=== PATIENT | female | born 1965 | race Caucasian/White ===

== ENCOUNTER → 2016-12-27 | Day surgery (SDC) | payer OTHER ==
[~2016-12-27] VITALS: Ht 170.2 cm; Wt 56.8 kg
[~2016-12-27] MED LIST: BUPIVACAINE HCL PF 0.5% 30 ML VIAL ONE; CEPH-460 PO; FAMOTIDINE 20 MG/2 ML VIAL ONE; IBUP-232 PO; LACTATED RINGER'S 1000 ML INJ 1,000 ML ONE; MIDAZOLAM HCL 2 MG/2 ML VIAL ONE; NEOMYCIN/POLYMYXIN 1 ML G.U. IRRIGANT TOPICAL ONE; NORC5TAB PO; POTA2TAB PO; PROPOFOL 200 MG/20 ML AMP IV ONE; TRIAMCINOLONE ACETONIDE 40 MG/ML VIAL ONE; VITA10002 PO; VITA400C2 PO; WOMECAP2 PO; ceFAZolin INJ 1,000 MG VIAL ONE
[2016-12-27 07:53] VITALS: BP 111/68; PULSE 62; RESP 20; TEMP 98; O2SAT 97
[2016-12-27 07:57] LABS: HEMATOCRIT 32.8 % (35.0-46.0); MEAN CORPUSCULAR HEMOGLOBIN 33.2 PG (27.0-34.0); MEAN CORPUSCULAR HGB CONC 34.2 % (32.0-36.0); PLATELET COUNT 270 TH/MM3 (150-450); RED BLOOD COUNT 3.38 MIL/MM3 (4.00-5.30); REVIEW FLAG FINAL; WHITE BLOOD COUNT 7.9 TH/MM3 (4.0-11.0)
--- NOTE | 2016-12-27 08:36 | RADHPO ---
EXAM DATE/TIME: 12/27/2016 07:51 [facility] COMPARISON: No previous studies available for comparison. INDICATIONS : Evaluate for pneumothorax,pneumonia, or communicable diseases. Pre op hand surgery MEDICAL HISTORY : None. SURGICAL HISTORY : None. ENCOUNTER: Initial ACUITY: 1 day PAIN SCORE: 0/10 LOCATION: Bilateral chest FINDINGS: A single view of the chest demonstrates the lungs to be symmetrically aerated without evidence of mas s, infiltrate or effusion. The cardiomediastinal contours are unremarkable. Osseous structures are intact. CONCLUSION: No acute disease. Fred Saldana MD on December 27, 2016 at 8:34 Board Certified Radiologist. This report was verified electronically.
[2016-12-27] MEDS: LIDOCAINE HCL 2% 50 ML VIAL ONE ×2 (09:58→10:05)
[2016-12-27 10:20] VITALS: TEMP 97.9
[2016-12-27 11:15] VITALS: BP 113/63; PULSE 64; RESP 14; O2SAT 97
--- NOTE | 2016-12-27 11:15 | MP ---
cc: RIGOBERTO CARPENTER III, M.D. DATE OF SURGERY: 12/27/2016 PREOPERATIVE DIAGNOSIS Right carpal tunnel syndrome. POSTOPERATIVE DIAGNOSIS Right carpal tunnel syndrome. PROCEDURE 1. Right open carpal tunnel release. 2. Right fourth A1 shelby steroid injection. SURGEON Rigoberto Carpenter III, MD PROCEDURE The patient was brought to the operating room and placed supine on the operating table. After the correct site and side of surgery were verified by members of each team in the room multiple times including the patient and myself and after adequate IV sedation had been achieved and after adequate timeout was performed to everyone's satisfaction, the right upper extremity was prepped and draped in traditional sterile surgical fashion. A 50/50 mixture of 2% plain lidocaine and 0.5% plain Marcaine was infiltrated in the skin and subcutaneous tissue at the base of palm and into the carpal tunnel. go back to the description. Prior to exsanguination a one-to-one mixture of Kenalog 40 mg for and I will and the 50, 50 lidocaine and Marcaine mixture was used in a one-to-one ratio for total of 1.0 mL injectate into the fourth A1 shelby. The fingers put through gentle passive range of motion examination was found to be full and unrestricted. There was no with staff initially. The limb was exsanguinated. A highly placed well-padded axillary tourniquet was inflated to 200 mmHg for a total of 10 minutes. A longitudinally oriented incision was made at the base of the palm and carried down through the skin and subcutaneous tissue. Blunt dissection was performed. Bipolar electrocautery was used as needed. The transverse carpal ligament was identified and divided in its midline from its proximal to its distal most extents, completely freeing the carpal tunnel contents. There was a moderately hypertrophic tenosynovium but the nerve itself did appear to be intact and in continuity. There were two small bands proximally and distally with encasing encircling scar tissue. These were dissected freeing the nerve completely. There were no other anatomic abnormalities or mass effect. Thorough irrigation with saline was performed and the skin edges were re-approximated using running and interrupted 4-0 nylon sutures. The hand and arm were thoroughly cleansed and dried. Betadine and Adaptic dressing was applied atop the wound followed by a bulky soft dressing. The hand and arm were thoroughly cleansed and dried. A circumferential dressing was applied. The axillary tourniquet was released. The hand and all the fingers on the right became immediately soft, pink and warm and had brisk capillary refill of less than two seconds. Sponge, needle and instrument counts were correct at the end of the case as reported by the nurses in the room. MD FIORELLA Cano III/ROLANDO /10:46 AM /10:53 AM
--- NOTE | 2016-12-27 19:24 | EKG ---
Date Performed: 12/27/2016 Time Performed: 07:57:46 PTAGE: 51 years EKG: Sinus bradycardia. Normal ECG except for rate NO PREVIOUS TRACING DOCTOR: Anupam Paulson Interpretating Date/Time 12/27/2016 19:22:50
== END | disposition home or self-care (01) ==
LOC: PHSDC 07:19
PROVIDERS: ATTEND Orthopaedic Surgery Hand Surgery
DX: G56.01 Carpal tunnel syndrome, right upper limb (principal); M65.9 Synovitis and tenosynovitis, unspecified; Z88.1 Allergy status to other antibiotic agents
CPT/HCPCS: 20550; 36415; 64721; 71010; 85027; 93005; J0690; J2250; J3301; J7120

== ENCOUNTER → 2017-05-16 | Day surgery (SDC) | payer OTHER ==
[~2017-05-16] VITALS: Ht 170.2 cm; Wt 59.0 kg
[~2017-05-16] MED LIST changes: +CHLORHEXIDINE GLUCONATE 2 % 1 PACK (2 CLOTHS) TOPICAL PRN; -FAMOTIDINE 20 MG/2 ML VIAL ONE; +HYDR-3288 PO; +HYDROmorphone HCL PF 1 MG/ML VIAL ONE; +INSULIN HUMAN REGULAR 1,000 UNITS/10 ML VIAL SQ PRN; -LACTATED RINGER'S 1000 ML INJ 1,000 ML ONE; +LACTATED RINGER'S 1000 ML IV PRN; +LIDOCAINE HCL 2% 50 ML VIAL ONE; +METOPROLOL TARTRATE 25 MG TAB PO PRN; +MORPHINE SULFATE 4 MG/ML INJ ONE; +NEOMYCIN/POLYMYXIN 1 ML G.U. IRRIGANT ONE; -NEOMYCIN/POLYMYXIN 1 ML G.U. IRRIGANT TOPICAL ONE; -NORC5TAB PO; +ONDANSETRON HCL 4 MG/2 ML VIAL IV PUSH ONE; +POVIDONE IODINE 5% (ANTISEPSIS KIT) 4 APPLICATIONS EACH NARE PRN; +SODIUM CHLORID 0.9% 500 ML IV PRN; -TRIAMCINOLONE ACETONIDE 40 MG/ML VIAL ONE; +ceFAZolin 1,000 MG/NS 100 ML IV SCH; +ePHEDrine/NS 25 MG/5 ML SYR IV ONE
[2017-05-16 07:52] LABS: MEAN CELL VOLUME 96.6 FL (80.0-100.0); MEAN CORPUSCULAR HEMOGLOBIN 32.9 PG (27.0-34.0); PLATELET COUNT 360 TH/MM3 (150-450); RED BLOOD COUNT 3.93 MIL/MM3 (4.00-5.30); RED CELL DISTRIBUTION WIDTH 12.4 % (11.6-17.2); REVIEW FLAG FINAL; WHITE BLOOD COUNT 8.2 TH/MM3 (4.0-11.0)
--- NOTE | 2017-05-16 10:13 | MP ---
cc: RIGOBERTO CARPENTER III, M.D. 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 PROCEDURE 1. Right hand flexor synovectomy. 2. Right ring finger flexor synovectomy. 3. Right ring finger A1 shelby release. SURGEON Rigoberto Carpenter III, MD DETAILS OF PROCEDURE The patient was brought to the operating room and placed on the operating table. After the correct site and side of surgery were verified by members of each team in the room multiple times including the patient and myself and after adequate preoperative markings and preoperative written consent was verified by everyone and after adequate general anesthesia was achieved, the right upper extremity was prepped and draped in a traditional sterile surgical fashion. A 50/50 mixture of 2% plain lidocaine and 0.5% plain Marcaine was infiltrated in the skin and subcutaneous tissue at the base of the palm in the areas of planned incisions. The limb was exsanguinated with a gentle Ilia wrap and a highly placed well-padded axillary tourniquet was inflated to 200 mmHg for a total of 24 minutes. The hand was placed palm up in a lead hand and Ean style incisions were made from the PIP joint proximally to the base of the palm. Blunt dissection was then performed. Bipolar electrocautery was used as needed. Synovial tissue burst through the opening in the skin distally and this was cultured. Perioperative antibiotics were then administered intravenously. Further dissection down to the flexor tendons revealed very inflamed and abundant synovial tissue. This was then debrided extensively stripping all the flexor tendons down to the base of the palm almost in its entirety out to the PIP joint. There was little if any that was abnormal synovial tissue that remained. The flexor tendons were slightly irritated from the synovitis but were overall completely intact proximally and distally. The A1 shelby was released as the patient had a problem with a trigger finger in the past in this finger. Neurovascular bundles were identified and kept in view the entire procedure as to protect them. Cultures were obtained. Tissue was sent for tissue culture as well as for pathology. There were no other anatomic abnormalities identified. A liter's worth of saline irrigation was then used to thoroughly flush out the wound. The axillary tourniquet was released and the hand and all the fingers became immediately soft, pink and warm including the ring finger with brisk capillary refill less than 2 seconds. The incisions were then closed using running and interrupted 4-0 nylon suture. A 1/4 Bunn drain split in half longitudinally was placed proximally and distally in the wound as there was only slight oozing. The hand and arm were thoroughly cleansed and dried. Betadine Adaptic dressing was applied. A bulky soft dressing was applied and then a short-arm splint immobilizing all the fingers was made. The patient was awakened from anesthesia and transported to the post-anesthesia care unit awake and in stable condition at the end of the case. Sponge, needle and instrument counts were correct at the end of the case as reported by the nurses in the room. MD FIORELLA Caon III/ROLANDO /9:42 AM /9:54 AM
[2017-05-16 11:15] VITALS: BP 106/69; PULSE 80; RESP 16; TEMP 97.9; O2SAT 99
== END | disposition home or self-care (01) ==
LOC: PHSDC 06:49
PROVIDERS: ATTEND Orthopaedic Surgery Hand Surgery
DX: M65.841 Other synovitis and tenosynovitis, right hand (principal); Z01.818 Encounter for other preprocedural examination
CPT/HCPCS: 01810; 26145; 36415; 85027; 87015; 87070; 87102; 87116; 87205; 87206; 88305; 88312; J0690; J1170; J2250; J2270; J2405; J3010; J7120

== ENCOUNTER → 2017-08-01 | Day surgery (SDC) | payer OTHER ==
[~2017-08-01] VITALS: Ht 170.2 cm; Wt 57.0 kg
[~2017-08-01] MED LIST changes: +*Lactated Ringer's INJ 1,000 ML ONE; +*MEPERIDINE 25 MG INJ VIAL PERIprocedural Use ONLY ONE; +CLIN300C5 PO; +ETHA400T; +FAMOTIDINE 20 MG/2 ML VIAL ONE; -HYDROmorphone HCL PF 1 MG/ML VIAL ONE; +IBUP1TAB7 PO; -INSULIN HUMAN REGULAR 1,000 UNITS/10 ML VIAL SQ PRN; +KETOROLAC TROMETHAMINE 30 MG/ML (IVP) VIAL ONE; +MELO7.5T27 PO; -MORPHINE SULFATE 4 MG/ML INJ ONE; -ONDANSETRON HCL 4 MG/2 ML VIAL IV PUSH ONE; -PROPOFOL 200 MG/20 ML AMP IV ONE; -ceFAZolin 1,000 MG/NS 100 ML IV SCH; +ceFAZolin 2 GM PREMIX 50 ML IV SCH; -ceFAZolin INJ 1,000 MG VIAL ONE; -ePHEDrine/NS 25 MG/5 ML SYR IV ONE
[2017-08-01 09:20] LABS: MEAN CELL VOLUME 96.3 FL (80.0-100.0); MEAN CORPUSCULAR HEMOGLOBIN 31.7 PG (27.0-34.0); PLATELET COUNT 372 TH/MM3 (150-450); RED BLOOD COUNT 3.63 MIL/MM3 (4.00-5.30); RED CELL DISTRIBUTION WIDTH 11.7 % (11.6-17.2); REVIEW FLAG FINAL; WHITE BLOOD COUNT 7.4 TH/MM3 (4.0-11.0)
[2017-08-01 13:35] VITALS: PULSE 83
[2017-08-01 14:30] VITALS: TEMP 97.6
[2017-08-01 15:10] VITALS: BP 110/63; PULSE 63; RESP 14; O2SAT 96
--- NOTE | 2017-08-02 06:59 | MP ---
cc: RIGOBERTO CARPENTER III, M.D. DATE OF OPERATION 08/01/2017 PREOPERATIVE DIAGNOSES Mycobacterium marinum. Tenosynovitis right hand and wrist. PROCEDURE 1. Radical synovectomy of right wrist flexor tendons. 2. Radical synovectomies right hand flexor tendons. 3. Right ring finger synovectomy. 4. Right thumb FPL synovectomy. 5. Right carpal tunnel release/median neurolysis. SURGEON Rigoberto Carpenter III, MD PROCEDURE The patient was brought to the operating room and placed supine on the operating room table. After the correct site and side of the surgery were verified by members of each team in the room multiple times including the patient and myself and after adequate preoperative markings and preoperative written consent was verified by everyone and after adequate general anesthesia was achieved, the right upper extremity was prepped and draped in the traditional sterile surgical fashion. The limb was elevated with pressure held on the brachial artery for a minute and then the highly placed, well-padded axillary tourniquet was inflated to 200 mmHg for a total of 105 minutes. The wrist was addressed first with the hand placed palm-up in a lead hand. An incision with angles at the flexion creases on the volar aspect of the wrist was made in the large extended carpal tunnel release fashion. This was carried down through skin and subcutaneous tissue. Blunt dissection was performed. Bipolar electrocautery was used as needed. The median nerve was immediately identified and protected. The transverse carpal ligament was completely opened into the palm where there was scar tissue already. The existing scar in the hand was reopened and reused out to the base of the ring finger. All flexor tendons in the wrist were then meticulously skeletonized of thick obviously abnormal synovial tissue. This was carried out into the hand which included the entirety of the fourth flexor tendon to the proximal phalanx where it stopped. The small finger was also included and this had tenosynovial buildup out to the base of the small finger but did not go into the small finger. The middle finger was the least affected. In the distal part of the hand, however, it was coated like all the others in the wrist and the base of the hand. The index finger flexor tendons were uninvolved distally but the flexor tendon of the thumb was involved and this required a separate incision in the volar aspect of the thumb to clean out the synovial buildup around the tendon. The A2 shelby was preserved. All the flexor tendons were skeletonized as stated. A large amount of tissue was passed off the field as a specimen. Repeat cultures were also obtained. The base of the carpal tunnel was then stripped of synovial tissue as well. After an hour's worth of extensive dissection, there was no obvious abnormal tissue remaining with the exception of very small flecks here and there on the tendons but 99% of the infected tissue had been removed. The median nerve was then examined and was found have a fibrous sheath around it so this was incised and median neurolysis performed from the distal forearm all the way to the branching in the hand. It otherwise appeared non-compromised. The axillary tourniquet was then released and the hand and all the fingers became immediately soft, pink and warm and had brisk capillary refill of less than 2 seconds. There was no active bleeding. Three liters of both saline with irrigant as well as sterile water were used to thoroughly irrigate out and scrub the tissues while protecting the nerve of course. Once this was done, all incisions were closed using interrupted and running 4-0 nylon sutures. The ring finger synovectomy was carried out from the incision in the hand, the instruments placed distally and the finger completely flexed down once it was loosened up and the normal unaffected tendon into the finger was clearly visualized. Once the skin edges were closed, two separate drains, one in the hand, one in the wrist were placed using a one-quarter inch Vickie drain split in half longitudinally. The hand and arm were thoroughly cleansed and dried. Additional local anesthetic was infiltrated in the forearm around the nerve to provide for some postoperative pain control. Betadine Adaptic dressings were applied on top the wound followed by a very, bulky protective volar immobilizing splint for comfort. The patient was awakened from anesthesia and transported to the Post-Anesthesia Care Unit awake and in stable condition. At the end of the case the sponge, needle and instrument counts were correct at the end of the case as reported by the nurses in the room. MD FIORELLA Cano III/ELSI /1:48 PM /6:17 AM
== END | disposition home or self-care (01) ==
LOC: PHSDC 08:23
PROVIDERS: ATTEND Orthopaedic Surgery Hand Surgery
DX: M65.89 Other synovitis and tenosynovitis, multiple sites (principal); A31.1 Cutaneous mycobacterial infection
CPT/HCPCS: 01810; 25115; 26145; 85027; 87015; 87070; 87102; 87116; 87205; 87206; 88305; J0690; J1885; J2175; J2250; J7120

== ENCOUNTER 2017-08-10 12:50 | Day surgery (SDC) | payer SELFPAY ==
[~2017-08-10 12:50] MED LIST changes: -*Lactated Ringer's INJ 1,000 ML ONE; -*MEPERIDINE 25 MG INJ VIAL PERIprocedural Use ONLY ONE; -BUPIVACAINE HCL PF 0.5% 30 ML VIAL ONE; -CHLORHEXIDINE GLUCONATE 2 % 1 PACK (2 CLOTHS) TOPICAL PRN; -ETHA400T; -FAMOTIDINE 20 MG/2 ML VIAL ONE; -IBUP-232 PO; -KETOROLAC TROMETHAMINE 30 MG/ML (IVP) VIAL ONE; -LACTATED RINGER'S 1000 ML IV PRN; -LIDOCAINE HCL 2% 50 ML VIAL ONE; -METOPROLOL TARTRATE 25 MG TAB PO PRN; -MIDAZOLAM HCL 2 MG/2 ML VIAL ONE; -NEOMYCIN/POLYMYXIN 1 ML G.U. IRRIGANT ONE; +NORC5TAB PO; -POTA2TAB PO; -POVIDONE IODINE 5% (ANTISEPSIS KIT) 4 APPLICATIONS EACH NARE PRN; -SODIUM CHLORID 0.9% 500 ML IV PRN; -VITA10002 PO; -VITA400C2 PO; -WOMECAP2 PO; -ceFAZolin 2 GM PREMIX 50 ML IV SCH
[2017-08-10 13:13] VITALS: BP 94/60; PULSE 74; RESP 20; TEMP 98.1; O2SAT 100
[2017-08-10] MEDS ORDERED: RIFA300C2 PO (13:19)
[2017-08-10] MEDS ORDERED: SODIUM CHLORIDE 0.9% FLUSH 10 ML FLUSH IV FLUSH PRN (13:45)
[2017-08-10 14:00] VITALS: BP 93/53; PULSE 63; RESP 20; TEMP 98.1; O2SAT 99
[2017-08-10] MEDS ORDERED: AMIKACIN IV ONE (14:00)
[2017-08-10] MEDS ORDERED: SODIUM CHLOR 0.9% IV ONE (14:00)
--- NOTE | 2017-08-10 14:45 | RADRPT ---
EXAM DATE/TIME: 08/10/2017 15:00 [facility] COMPARISON: No previous studies available for comparison. INDICATIONS : Patient presents with stenosing tenosynovitis of finger of right hand in need of PICC line placement. MEDICAL HISTORY : Cataracts SURGICAL HISTORY : Laminectomy L5, Right hand surgery ENCOUNTER: Initial ACUITY: 3 months PAIN SCORE: 8/10 LOCATION: Right forearm FLUORO TIME: 0.14 minutes IMAGE SERIES: 1 ACCESS: Left basilic vein DEVICE(S): 1.) 4 Khmer single lumen 40 cm Xcela Power PICC PROCEDURE : 1. Ultrasound guidance for venous catheterization. 2. Fluoroscopic guidance. 3. Ultrasound & fluoroscopic guided central venous Power PICC line placement. The risks, benefits and alternatives to the procedure were explained and verbal and written consent w as obtained. The site was prepped in sterile fashion. Full sterile technique was used, including ca p, mask, sterile gloves and gown and a large sterile sheet. Hand hygiene and 2% chlorhexidine prep w as utilized per protocol for cutaneous antisepsis with appropriate dry time for site. Sterile gel a nd sterile probe cover were utilized for ultrasound guidance. The skin and subcutaneous tissues wer e infiltrated with local anesthetic solution. Under direct ultrasound guidance, a suitable vein was accessed and a measuring guidewire was introduc ed and positioned in the central venous system. The ultrasound images depicting access guidance were saved and stored to PACS for permanent record. A Power Injectable PICC line was cut to prescribed length and introduced, positioned with tip at the cavoatrial junction level. The line was flushed and secured per protocol. CONCLUSION: 1. Uncomplicated central venous Power PICC line placement. 2. The PICC line can be used immediately. Mario Hernandez MD on August 10, 2017 at 14:42 Board Certified Radiologist. This report was verified electronically.
[2017-08-11] MEDS ORDERED: AMIK4INJ2 IV (08:01)
[2017-08-11] MEDS ORDERED: ETHA400T PO (08:01)
[2017-08-11] MEDS ORDERED: SODIUM CHLORIDE 0.9% FLUSH 10 ML FLUSH IV FLUSH SCH (09:00)
== END 2017-08-10 15:40 | disposition home or self-care (01) ==
LOC: HROP 12:50 → HRIP 12:57 → HROP 15:40
PROVIDERS: ATTEND Nurse Practitioner Acute Care
DX: M65.831 Other synovitis and tenosynovitis, right forearm (principal)
CPT/HCPCS: 36569; 76937; 77001; 96365; C1751; J0278; J1642; J7050

== ENCOUNTER → 2018-01-03 | Day surgery (SDC) | payer OTHER ==
[~2018-01-03] VITALS: Ht 171.4 cm; Wt 55.0 kg
[~2018-01-03] MED LIST changes: +ACETAMINOPHEN/HYDROcodone 325 MG/5 MG TAB ONE; +AMIK4INJ2 IV; +BUPIVACAINE HCL PF 0.5% 10 ML VIAL ONE; -CEPH-460 PO; +CHLORHEXIDINE GLUCONATE 2 % 1 PACK (2 CLOTHS) TOPICAL PRN; -CLIN300C5 PO; +ETHA400T PO; +LACTATED RINGER'S 1000 ML IV PRN; +LEXA10TA PO; +LIDOCAINE HCL 2% 50 ML VIAL ONE; -MELO7.5T27 PO; +METOPROLOL TARTRATE 25 MG TAB PO PRN; +MIDAZOLAM HCL 2 MG/2 ML VIAL ONE; +MOBI7.5T PO; +MORPHINE SULFATE 4 MG/ML INJ ONE; +NEOMYCIN/POLYMYXIN 1 ML G.U. IRRIGANT ONE; -NORC5TAB PO; +POVIDONE IODINE 5% (ANTISEPSIS KIT) 4 APPLICATIONS EACH NARE PRN; +RIFA300C2 PO; +SODIUM CHLORID 0.9% 500 ML IV PRN; +VANCOMYCIN 1000 MG/NS 250 ML ON-CALL IV SCH
[2018-01-03 13:23] VITALS: PULSE 62
--- NOTE | 2018-01-03 14:07 | MP ---
cc: Rigoberto Carpenter MD DATE OF OPERATION: 01/03/2018 DATE OF OPERATION: 01/03/2018 PREOPERATIVE DIAGNOSES: 1. Mycobacterium marinum infection. 2. Flexor tendon adhesions, left hand. 3. Numbness and tingling in the fingers of the left hand. PROCEDURE: 1. Right hand exploration. 2. Right fourth finger, palm and wrist FDP and FDS flexor tenolysis. 3. Right fifth palm and wrist FDP and FDS flexor tenolysis. 4. Right median neurolysis at the wrist and hand. SURGEON: Rigoberto Carpenter III, PROCEDURE: The patient was brought to the operating room, placed supine on the operating table. After the correct side and site of surgery were verified by members of each team in the room multiple times including the patient and myself and, after adequate preoperative markings were verified by everyone, and after preoperative timeout was performed to everyone's satisfaction, after adequate general anesthesia had been achieved, the right upper extremity was prepped and draped in traditional sterile surgical fashion. A 50:50 mixture of 2% plain lidocaine and 0.5% plain Marcaine was infiltrated in the skin and subcutaneous tissues, into the wrist and palm. The limb was exsanguinated with a gentle Ilia wrap and the highly placed, well-padded axillary tourniquet was inflated to 200 mmHg for a total of 75 minutes. Utilizing the old incisions in the distal aspect of the palm, the hand was opened as was the ring finger and enormous amounts of scar tissue encapsulating all of the flexor tendons of the fourth and fifth fingers was encountered. The fourth finger adhesions went up to the PIP joint and all the way down to the wrist. The fifth finger flexor tendons went from the A1 shelby proximally to the wrist. The incision was ultimately opened up all the way utilizing the entire previous incision and the wrist and carpal tunnel were entered as well where just an enormous amount of scar tissue were encountered. The fourth finger flexor tendons were identified and skeletonized first all the way out to the insertion into the distal phalanx, leaving the A2 and the A4 pulleys intact. There was a small amount of yellow synovial tissue in the 4th finger causing some bulk within the flexor sheath. These were all excised and passed off the field as specimen for pathology as well as microbiology. The flexor tendons then moved individually and the muscles did have contraction to them and elasticity proximally. The same was done for the fifth finger FDP and the FDS tendons; however, the finger was not entered as the adhesions stopped prior to entering the finger. The median nerve was encased in scar tissue as well and this was completely freed up and it was not constricted at all. Thorough irrigation was performed. The skin edges were then reapproximated using running and interrupted 3-0 and 4-0 nylon sutures. Some skin was excised where there was a previous slow to heal wound and new skin was re-opposed to new skin under no tension. 2 liters worth of saline irrigation was used throughout the case to irrigate the wound. Once all the wounds were closed, the hand and arm were thoroughly cleansed and dried. Betadine and Adaptic dressing was applied on top of the wound. The axillary tourniquet was released. The hand and all fingers became immediately soft, pink and warm and had brisk capillary refill of less than 2 seconds. There was no evidence of any bleeding. Capillary refill is less than 2 seconds in all fingertips. The patient was awakened from anesthesia and transported to the postanesthesia care unit awake and in stable condition at the end of the case. Sponge, needle and instrument counts were correct at the end of the case as reported by the nurses in the room. MD FIORELLA Cano/NHAN , 01:31 PM , 02:06 PM
--- NOTE | 2018-01-03 14:41 | EKG ---
Date Performed: 01/03/2018 Time Performed: 10:11:03 PTAGE: 52 years EKG: Sinus rhythm POSSIBLE RIGHT VENTRICULAR CONDUCTION DELAY BORDERLINE ECG Since the PREVIOUS TRACING , no significant change noted PREVIOUS TRACIN12/27/2016 07.57 DOCTOR: John Paul Kruse Interpretating Date/Time 01/03/2018 14:41:05
[2018-01-03 14:42] VITALS: BP 98/51; PULSE 63; RESP 16; TEMP 97.4; O2SAT 95
== END | disposition home or self-care (01) ==
LOC: PHSDC 09:28
PROVIDERS: ATTEND Orthopaedic Surgery Hand Surgery
DX: A31.1 Cutaneous mycobacterial infection (principal); M67.844 Other specified disorders of tendon, left hand; R20.0 Anesthesia of skin; R20.2 Paresthesia of skin; F32.9 Major depressive disorder, single episode, unspecified
CPT/HCPCS: 01810; 25295; 26442; 64704; 87015; 87070; 87102; 87116; 87205; 87206; 88305; 93005; J2250; J2270; J3370; J7050; J7120